=== PATIENT | male | born 1965 | race Two or more races ===

== ENCOUNTER 2016-11-21 08:36 | Day surgery (SDC) | payer OTHER ==
[2016-11-21] MEDS ORDERED: FLUT1DIS5 IH (09:01)
[2016-11-21] MEDS ORDERED: IV RINGERS,LACTATED 1000ML 1,000 ML IV ONE (09:15)
[2016-11-21] MEDS ORDERED: fentaNYL PF VIAL 250 MCG/5 ML VIAL ONE (09:21)
[2016-11-21] MEDS ORDERED: GLYCOPYRROLATE 1 MG/5 ML VIAL. ONE (09:26)
[2016-11-21] MEDS ORDERED: BUPIVACAINE-EPI 0.25%-1:200000 MPF 30 ML VIAL. ONE (09:31)
[2016-11-21] MEDS ORDERED: PROPOFOL 20 ML IV ONE (09:59)
[2016-11-21] MEDS ORDERED: LIDOCAINE 2% PF Vial for OR 5 ML VIAL. ONE (09:59)
[2016-11-21] MEDS ORDERED: DEXAMETHASONE SOD PHOS 20 MG/5 ML VIAL. ONE (09:59)
[2016-11-21] MEDS ORDERED: ONDANSETRON PF 4 MG/2 ML VIAL. ONE (09:59)
[2016-11-21] MEDS ORDERED: IV RINGERS,LACTATED 1000ML 1,000 ML IV SCH (10:01)
[2016-11-21] MEDS ORDERED: HYDROmorphone 2 MG/ML VIAL IV PRN (10:15)
[2016-11-21] MEDS ORDERED: MORPHINE SULFATE 2 MG/ML DISP.SYRIN. IV PRN (10:15)
[2016-11-21] MEDS ORDERED: ONDANSETRON PF 4 MG/2 ML VIAL. IV PRN (10:15)
[2016-11-21] MEDS ORDERED: LIDOCAINE 1% 1 ML SYRINGE. ID PRN (10:15)
[2016-11-21] MEDS ORDERED: PROCHLORPERAZINE 10 MG/2 ML VIAL. IV PRN (10:15)
[2016-11-21] MEDS ORDERED: fentaNYL PF VIAL 100 MCG/2 ML VIAL IV PRN (10:15)
[2016-11-21] MEDS ORDERED: NEOSTIGMINE METHYLSULFATE 5 MG/5 ML SYRINGE. ONE (10:31)
[2016-11-21] MEDS ORDERED: SEVOFLURANE 61 TO 120 MINUTES. IH ONE ×2 (10:31→10:50)
--- NOTE | 2016-11-21 10:39 | PDOC4 ---
Operative Note Operative Note Date: 11/21/2016 Preoperative diagnosis: Bilateral inguinal hernia Postoperative diagnosis: Same Procedure: Robotic-assisted laparoscopic bilateral inguinal hernia repair with mesh Surgeon: Dave Specimen: None Dictation: Patient is a 50-year-old male with bilateral inguinal hernias the procedure of robotic-assisted laparoscopic bilateral inguinal hernia repair with mesh was explained to the patient in detail all risks benefits were also discussed including bleeding infection injury to intra-abdominal contents possibly necessitating further or open operations. The patient seemed understanding gave both verbal and written consent to have the procedure performed. Patient was taken to the operating room placed in the supine position general anesthesia was initiated once patient was asleep and intubated he was placed in low lithotomy positioning and his abdomen and groins were prepped and draped in the usual sterile fashion using ChloraPrep. An area in the left upper quadrant was injected with quarter percent Marcaine with epinephrine and an incision was made with 11 blade scalpel using a 5 mm Visiport was placed under direct visualization within the abdomen and a pneumoperitoneum was achieved. The abdomen was inspected was noted that he had some adhesions to the anterior abdominal wall from the omentum at his previous hernia site at his umbilicus. A second 8 mm da Stef port was placed in the left mid abdomen under direct visualization and using Endo Kai scissors the adhesions were taken down with sharp dissection once this was complete a 8 mm port was placed under direct visualization at the umbilicus as well as second port in the right mid abdomen. The da Stef robot was brought in and docked all ports and the surgeon went to the robotic console. Using a grasper and Endo Kai scissors the peritoneum over the groin area on the right side was incised and a window was propagated with blunt direct and sharp dissection posing the hernia defect the hernia contents were then reduced from the hernia defect at the same time would similar fashion the left groin area. It was incised window propagated in the hernia contents reduced. Using program mesh this was placed within the abdomen over the hernia defects both on the right and left. The peritoneum was then closed over both the right and left defects with a running 2-0V lock suture. Once this was complete the robotic arms were undocked from the ports the ports removed and the pneumoperitoneum reduced all port sites incisions were closed with 4-0 subcuticular Monocryl Mastisol Steri- Strips and Band-Aids were applied as dressings. Patient was awakened and asked made in the operative room taken to recovery in stable condition all sponge instrument needle counts listed as correct estimated blood loss 10 mL ORA FRANCOIS MD Nov 21, 2016 10:39
--- NOTE | 2016-11-21 10:41 | DISCH ---
DISCHARGE INSTRUCTIONS Condition on Discharge Condition on Discharge: Stable Activity After Discharge Activity Instructions for Disc: Avoid exertion Other activity instructions: No lifting >20lbs for 2 weeks Diet after Discharge Diet after Discharge: Regular Wound Incision Care Other wound/incision instructi: May shower in 24 hours Contacting the after DC Call your doctor for: If your condition worsens Follow-Up Follow up with: Dr Francois in 2 weeks ORA FRANCOIS MD Nov 21, 2016 10:41
[2016-11-21] MEDS ORDERED: OXYC-323 PO (11:05)
[2016-11-21] MEDS ORDERED: fentaNYL PF VIAL 100 MCG/2 ML VIAL ONE ×2 (11:30→12:00)
[2016-11-21] MEDS: fentaNYL PF VIAL 100 MCG/2 ML VIAL IV PRN ×3 (11:32→12:02)
[2016-11-21] MEDS ORDERED: oxyCODONE/APAP 5/325 1 TAB TABLET PO ONE (11:45)
[2016-11-21 12:30] VITALS: BP 135/76
== END 2016-11-21 12:30 | disposition home or self-care (01) ==
LOC: SURG 08:36
PROVIDERS: ATTEND Surgery
DX: K40.20 Bilateral inguinal hernia, without obstruction or gangrene, not specified as recurrent (principal); J44.9 Chronic obstructive pulmonary disease, unspecified; Z87.01 Personal history of pneumonia (recurrent); Z72.0 Tobacco use; Z87.891 Personal history of nicotine dependence
CPT/HCPCS: 49650; C1781; J0690; J1100; J2405; J2704; J2710; J3010; J3490; J2001

== ENCOUNTER → 2017-11-18 | Outpatient (CLI) | payer OTHER ==
[~2017-11-18] MED LIST: FLUT1DIS5 IH; OXYC-323 PO
--- NOTE | 2017-11-18 13:37 | RAD ---
CT CHEST WO CONTRAST dated 11/18/2017 12:51 PM Indication:..LUNG NODULE. PREVIOUS 2010. Comparison: 04/26/2010. Technique: Contiguous axial imaging the chest performed without the administration of IV contrast One or more of the following individualized dose reduction techniques were utilized for this examination: 1. Automated exposure control 2. Adjustment of the mA and/or kV according to patient size 3. Use of iterative reconstruction technique Findings: Heart size within normal limits. No pericardial effusion. There are calcified mediastinal and right hilar lymph nodes, unchanged. Noncalcified subcarinal lymph node measures 1.2 cm short axis versus 2.2 cm previous. There is also some soft tissue fullness of the right hilum that appears to have improved. Borderline enlarged left paratracheal lymph node measuring 1.1 cm short axis, unchanged. There are also borderline enlarged bilateral axillary lymph nodes, left greater than right. Thyroid gland unremarkable. Central airways are patent. There is mild diffuse bronchial wall thickening. Noncalcified pulmonary nodule in the right upper lobe inferiorly on image 36 measures 4 mm, unchanged. Couple of tiny nodules along the minor fissure on the right, also unchanged. Nodule along the left major fissure on image 35 measures 7 mm, stable. No new parenchymal nodule or mass. No pleural effusion. There is some linear scar or atelectasis in the right middle lobe, new from prior exam. Limited images of the upper abdomen unremarkable. Bone windows show no acute findings. Mild multilevel spondylosis. IMPRESSION: 1. Small bilateral noncalcified pulmonary nodules, nonspecific but unchanged from prior study. 2. Mediastinal and right hilar lymphadenopathy, also nonspecific but somewhat improved from prior study. 3. Old granulomatous disease. Electronically signed by: Richard Portillo MD (11/18/2017 1:34 PM) [id number]
== END | disposition home or self-care (01) ==
LOC: CT 12:14
PROVIDERS: ATTEND Internal Medicine Critical Care Medicine
DX: D71 Functional disorders of polymorphonuclear neutrophils (principal); M47.894 Other spondylosis, thoracic region; J44.9 Chronic obstructive pulmonary disease, unspecified; R59.1 Generalized enlarged lymph nodes; R91.8 Other nonspecific abnormal finding of lung field; Z87.891 Personal history of nicotine dependence
CPT/HCPCS: 71250

== ENCOUNTER → 2017-12-26 | Outpatient (CLI) | payer OTHER ==
[2017-11-27 12:03] VITALS: BP 138/81
--- NOTE | 2017-12-26 12:05 | RAD ---
CT of the chest without contrast, 12/26/2017: HISTORY: Follow-up lung nodule Noncontrast scans were obtained and compared to a study from 11/18/2017. A 4 mm nodule in the inferolateral aspect of the right upper lobe seen on image #170 of series #3 is unchanged. These thinner 1 mm slices show slightly increased density within this nodule, although not definite calcification. There is a 7 mm perifissural nodule along the lateral aspect of the oblique fissure on the left as seen on image 181 of series #3. This is unchanged. Several other very tiny perifissural densities bilaterally are unchanged and in these locations are typically benign. No new or enlarging pulmonary lesion is seen. There are a few scattered linear parenchymal scars. There are calcified mediastinal and right hilar lymph nodes compatible with old granulomatous disease. Precarinal and subcarinal lymph nodes are at the upper limits of normal in size but unchanged. IMPRESSION: 1. Old healed granulomatous disease in the chest. 2. Unchanged small bilateral pulmonary nodules. PQRS Compliance Statement: One or more of the following individualized dose reduction techniques were utilized for this examination: 1. Automated exposure control 2. Adjustment of the mA and/or kV according to patient size 3. Use of iterative reconstruction technique Electronically signed by: Timothy Garrett MD (12/26/2017 12:01 PM) [facility]
== END | disposition home or self-care (01) ==
LOC: CT 14:28
PROVIDERS: ATTEND Internal Medicine Critical Care Medicine
DX: R91.8 Other nonspecific abnormal finding of lung field (principal)
CPT/HCPCS: 71250

== ENCOUNTER → 2018-07-28 | Outpatient (CLI) | payer OTHER ==
[2017-11-27 12:03] VITALS: BP 138/81
[~2018-07-28] MED LIST changes: -OXYC-323 PO; +OXYC1TAB15 PO
--- NOTE | 2018-07-28 12:00 | RAD ---
CT CHEST WO CONTRAST Indication: Lung nodule. Exposure: One or more of the following individualized dose reduction techniques were utilized for this examination: 1. Automated exposure control 2. Adjustment of the mA and/or kV according to patient size 3. Use of iterative reconstruction technique. Technique: Standard imaging without intravenous contrast. Comparison: December 26, 2017. FINDINGS: Mild coronary artery calcification. No significant pericardial effusion or pleural effusion. Mild anterior mediastinal density is stable. No significant thyroid mass. Limited vascular exam without intravenous contrast, aorta mildly calcified without evidence of aneurysm. Mild mediastinal and hilar lymph node granulomatous calcification. No new pathologic lymph node enlargement. Left lower lobe pulmonary nodule abutting the major fissure is again identified, series 8, image 200, measuring 7 mm, unchanged. Right upper lobe nodule, series 8, image 188, is unchanged, measuring about 5 mm. Multiple areas of fissural nodularity or thickening are again seen. No new mass is evident. Linear markings in the right middle lobe anteriorly are unchanged, compatible with scarring. There is also some mild unchanged scarring in the right lower lobe. Limited scans to the upper abdomen demonstrate no obvious acute findings but are limited by the technique. There is degenerative spondylosis of the spine with mild anterior wedging of a thoracic vertebrae, unchanged. IMPRESSION: 1. Stable bilateral pulmonary nodules. 2. No acute findings in the chest. Electronically signed by: Richard Myles MD (07/28/2018 11:57 AM) [id number]
== END | disposition home or self-care (01) ==
LOC: CT 10:09
PROVIDERS: ATTEND Internal Medicine Critical Care Medicine
DX: R91.8 Other nonspecific abnormal finding of lung field (principal); I25.10 Atherosclerotic heart disease of native coronary artery without angina pectoris
CPT/HCPCS: 71250